=== PATIENT | female | born 1990 | race Caucasian/White ===

== ENCOUNTER 2017-02-08 14:49 | Emergency (ER) | payer OTHER ==
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
[2017-02-08] MEDS ORDERED: IBUPROFEN 600 MG TAB PO ONE (18:25)
[2017-02-08 18:26] VITALS: BP 121/68
[2017-02-08 21:15] VITALS: PULSE 65; RESP 15; TEMP 98.2; O2SAT 97
== END 2017-02-08 21:14 | disposition home or self-care (01) ==
DX: S16.1XXA Strain of muscle, fascia and tendon at neck level, initial encounter (principal); V49.49XA Driver injured in collision with other motor vehicles in traffic accident, initial encounter; Y92.410 Unspecified street and highway as the place of occurrence of the external cause; Y99.8 Other external cause status; Y93.89 Activity, other specified